=== PATIENT | male | born 1970 | race Caucasian/White ===

== ENCOUNTER 2017-06-16 11:02 | Emergency (ER) | payer OTHER ==
[2017-06-16 11:18] VITALS: BP 128/73; TEMP 98
--- NOTE | 2017-06-16 11:26 | C.PDOC ---
History Of Present Illness 47 y/o male c/o left shoulder pain for 2 weeks. Patient states he does a thousand pushups and hundreds of pull-ups per day. He states he has been using IcyHot and taking warm showers w/o improvement. Denies trauma. Notes pain worsens with movement. Time Seen by Provider: 06/16/17 11:13 Chief Complaint (Nursing): Upper Extremity Problem/Injury History Per: Patient History/Exam Limitations: no limitations Onset/Duration Of Symptoms: Days Current Symptoms Are (Timing): Still Present Exacerbating Factor(s): Movement Recent travel outside of the [facility]: No Past Medical History Reviewed: Historical Data, Nursing Documentation, Vital Signs Vital Signs: Last Vital Signs Temp 98 F 06/16/17 11:15 Pulse 61 06/16/17 11:42 Resp 17 06/16/17 11:42 BP 128/73 06/16/17 11:15 Pulse Ox 98 06/16/17 11:42 - Medical History PMH: No Chronic Diseases - [facility] Procedures INFLUENZA VACCINATION (11/08/14) Family History: States: Unknown Family Hx - Social History Hx Alcohol Use: No Hx Substance Use: No - Immunization History Hx Tetanus Toxoid Vaccination: No Hx Influenza Vaccination: No Hx Pneumococcal Vaccination: No Review Of Systems Except As Marked, All Systems Reviewed And Found Negative. Constitutional: Negative for: Fever, Chills Musculoskeletal: Positive for: Shoulder Pain (L). Negative for: Neck Pain Skin: Negative for: Rash Neurological: Negative for: Weakness, Numbness Physical Exam - Physical Exam Appears: Non-toxic, No Acute Distress Skin: Normal Color, Warm, Dry, No Rash Head: Atraumatic, Normacephalic Neck: Normal ROM, No Midline Cervical Tenderness, No Paracervical Tenderness, Supple Chest: Symmetrical Cardiovascular: Rhythm Regular Respiratory: Normal Breath Sounds, No Rales, No Rhonchi, No Wheezing Back: Normal Inspection, No Vertebral Tenderness, No Paraspinal Tenderness Extremity: Capillary Refill (< 2 sec. ), No Deformity, Other (Left Shoulder: decreased abduction, painful anterior and posterior rotation, (+) shoulder swelling, no erythema) Extremity: Bilateral: Normal Color And Temperature Pulses: Left Radial: Normal, Right Radial: Normal Neurological/Psych: Oriented x3, Normal Motor, Normal Sensation ED Course And Treatment O2 Sat by Pulse Oximetry: 96 (RA) Pulse Ox Interpretation: Normal Medical Decision Making Medical Decision Making: overuse L shoulder injury, prob related to 1000 pushups and pullups/day NSAIDS/Ice educated opt MRI w Ortho Disposition Doctor Will See Patient In The: Office Counseled Patient/Family Regarding: Studies Performed, Diagnosis - Disposition Referrals: [facility] [Outside] [facility] [Outside] Coleen Gifford MD [Staff Provider] - Disposition: HOME/ ROUTINE Disposition Time: 11:26 Condition: GOOD Additional Instructions: ice packs 1/2 hour per hour, nothing hot No Icy Hot Motrin 400-600 mg every 6 hours Tramadol- narcotics, as needed follow-up with Ortho to consider outpatient MRI Prescriptions: traMADol [Ultram] 50 mg PO Q6H PRN #20 tab PRN Reason: pain Instructions: Shoulder Sprain (ED) Forms: [employer] (Macanese) - Clinical Impression Clinical Impression: Shoulder pain, left - Scribe Statement The provider has reviewed the documentation as recorded by the Scribe SM All medical record entries made by the Scribe were at my direction and personally dictated by me. I have reviewed the chart and agree that the record accurately reflects my personal performance of the history, physical exam, medical decision making, and the department course for this patient. I have also personally directed, reviewed, and agree with the discharge instructions and disposition.
[2017-06-16 11:42] VITALS: PULSE 61; RESP 17
[2017-06-16 13:05] VITALS: O2SAT 96
== END 2017-06-16 11:50 | disposition home or self-care (01) ==
LOC: C.ER 11:02
DX: M25.512 Pain in left shoulder (principal)

== ENCOUNTER 2018-12-03 15:06 | Emergency (ER) | payer MEDICAID, OTHER ==
[2018-12-03 15:16] VITALS: RESP 18
[2018-12-03] MEDS ORDERED: Sodium Chloride 0.9% 1,000 ML IV ONE (15:50)
--- NOTE | 2018-12-03 16:07 | C.PDOC ---
History Of Present Illness 48 year old male presents to the ED complaining of multiple episodes of diarrhea and vomiting since yesterday approximately around 1400. Associated symptoms include chills, dizziness, and crampy abdominal pain. Reports the symptoms s tarted 2 hours after he ate canned tuna and crackers. Denies any other complaints. Time Seen by Provider: 12/03/18 15:45 Chief Complaint (Nursing): Abdominal Pain History Per: Patient History/Exam Limitations: no limitations Onset/Duration Of Symptoms: Days (1) Current Symptoms Are (Timing): Still Present Location Of Pain/Discomfort: Diffuse Radiation Of Pain To:: None Associated Symptoms: Chills, Nausea, Vomiting, Diarrhea Last Bowel Movement: Today Past Medical History Reviewed: Historical Data, Nursing Documentation, Vital Signs Vital Signs: Last Vital Signs Temp 97.3 F L 12/03/18 15:12 Pulse 103 H 12/03/18 15:12 Resp 18 12/03/18 15:12 BP 129/95 H 12/03/18 15:12 Pulse Ox 99 12/03/18 15:12 - Medical History PMH: No Chronic Diseases Other Surgeries: Hx of surgeries - [facility] Procedures INFLUENZA VACCINATION (11/08/14) Family History: States: No Known Family Hx - Social History Hx Alcohol Use: No Hx Substance Use: No - Immunization History Hx Tetanus Toxoid Vaccination: No Hx Influenza Vaccination: No Hx Pneumococcal Vaccination: No Review Of Systems Except As Marked, All Systems Reviewed And Found Negative. Constitutional: Positive for: Chills. Negative for: Fever Cardiovascular: Negative for: Chest Pain Respiratory: Negative for: Shortness of Breath Gastrointestinal: Positive for: Nausea, Vomiting, Abdominal Pain, Diarrhea Genitourinary: Negative for: Dysuria, Hematuria Neurological: Positive for: Dizziness Physical Exam - Physical Exam Appears: Non-toxic, Other (mild painful distress ) Skin: Warm, Dry, No Rash Head: Normacephalic Eye(s): bilateral: EOMI, Other (pinpoint pupils ) Oral Mucosa: Moist Neck: Supple Chest: Symmetrical Cardiovascular: Rhythm Regular Respiratory: Normal Breath Sounds, No Rales, No Rhonchi, No Wheezing Gastrointestinal/Abdominal: Soft, No Tenderness Neurological/Psych: Oriented x3, Normal Speech Gait: Steady ED Course And Treatment - Laboratory Results Result Diagrams: 12/03/18 16:37 12/03/18 16:29 O2 Sat by Pulse Oximetry: 99 (RA) Pulse Ox Interpretation: Normal Medical Decision Making Medical Decision Making: Plan - Bloodwork - Pepcid 20mg IVP - Toradol 30mg IVP - Zofran 4mg IVP - UA Disposition - Disposition Disposition: HOME/ ROUTINE Disposition Time: 18:09 Condition: STABLE Prescriptions: Aluminum Hydroxide/Magnesium H [Maalox 30 ml] 30 ml PO BID #1 bottle Famotidine [Pepcid] 20 mg PO HS #10 tab Ondansetron ODT [Zofran ODT] 4 mg PO TID #12 odt Instructions: Viral Gastroenteritis, Adult (DC) Forms: [employer] (Lux[place]ish), General Discharge Instructions - POA Present On Arrival: None - Clinical Impression Clinical Impression: Gastroenteritis - Scribe Statement The provider has reviewed the documentation as recorded by the Scribe Reta Kan All medical record entries made by the Scribe were at my direction and personally dictated by me. I have reviewed the chart and agree that the record accurately reflects my personal performance of the history, physical exam, medical decision making, and the department course for this patient. I have also personally directed, reviewed, and agree with the discharge instructions and disposition.
[2018-12-03] MEDS ORDERED: Sodium Chloride 0.9% 1,000 ML ONE (16:21)
[2018-12-03 16:35] LABS: BASO % 0.6 % (0.0-2.0); EOS % 0.2 % (0.0-4.0); HEMOGLOBIN 18.5 g/dL (12.0-18.0); LYMPH # 1.1 K/uL (1.0-4.3); LYMPH % 13.8 % (20.0-40.0); MEAN CELL VOLUME 92.5 fL (80.0-94.0); MEAN CORPUSCULAR HEMOGLOBIN 30.4 pg (27.0-31.0); MEAN CORPUSCULAR HGB CONC 32.9 g/dL (33.0-37.0); MEAN PLATELET VOLUME 8.7 fL (7.2-11.7); MONO # 0.7 K/uL (0.0-0.8); MONO % 8.3 % (0.0-10.0); NEUT # 6.2 K/uL (1.8-7.0); NEUT % 77.1 % (50.0-75.0); RBC 6.08 Mil/uL (4.40-5.90); RED CELL DISTRIBUTION WIDTH 13.9 % (11.5-14.5); WHITE BLOOD COUNT 8.1 K/uL (4.8-10.8)
[2018-12-03 16:48] LABS: SQUAMOUS EPITHIAL < 1 /hpf (0-5); URINE BILIRUBIN NEGATIVE (NEGATIVE); URINE BLOOD NEGATIVE (NEGATIVE); URINE CLARITY Hazy (Clear); URINE GLUCOSE (UA) NORMAL (Normal); URINE LEUKOCYTE ESTERASE NEG Leu/uL (Negative); URINE PROTEIN 2+ mg/dL (NEGATIVE); URINE UROBILINOGEN NORMAL mg/dL (0.2-1.0)
[2018-12-03 16:50] LABS: URINE COLOR YELLOW (YELLOW)
[2018-12-03 16:55] LABS: ALB/GLOB RATIO 1.2 (1.0-2.1); ALBUMIN 5.1 g/dL (3.5-5.0); CALCIUM 10.2 mg/dl (8.6-10.4)
[2018-12-03 17:03] LABS: BARBITURATES, UR NEGATIVE (NEGATIVE); BENZODIAZEPINES, UR NEGATIVE (NEGATIVE); OPIATES, UR NEGATIVE (NEGATIVE); PHENCYCLIDINE, UR NEGATIVE (NEGATIVE)
[2018-12-03 17:35] VITALS: BP 113/72; PULSE 56; TEMP 98.5
[2018-12-03 18:12] VITALS: O2SAT 99
== END 2018-12-03 19:15 | disposition home or self-care (01) ==
LOC: C.ER 15:06
DX: K52.9 Noninfective gastroenteritis and colitis, unspecified (principal)
CPT/HCPCS: 80053; 81001; 85025; 96361; 96374; 96375; 99285; G0480; J1885; J2405; J7030

== ENCOUNTER 2018-12-05 13:42 | Emergency (ER) | payer MEDICAID, OTHER | END 2018-12-05 15:24 | disposition home or self-care (01) | LOC: C.ER 13:42 ==